=== PATIENT | female | born 1935 | race American Indian/Alaskan Native ===

== ENCOUNTER 2019-10-20 12:29 | Emergency (ER) | payer MEDICARE ==
[2019-10-20 13:33] LABS: Eosinophils # (Auto) 0.1 K/mm3 (0.0-0.4); Eosinophils % (Auto) 1.3 % (0.0-4.3); Hematocrit 44.6 % (30.3-42.9); Hemoglobin 14.7 gm/dl (10.1-14.3); Lymphocytes # (Auto) 1.1 K/mm3 (1.2-5.4); Lymphocytes % (Auto) 26.1 % (13.4-35.0); Mean Corpuscular HGB Conc 33 % (30-34); Mean Corpuscular Volume 88 fl (79-97); Monocytes # (Auto) 0.3 K/mm3 (0.0-0.8); Platelet Count 157 K/mm3 (140-440); Red Cell Distribution Width 14.4 % (13.2-15.2)
[2019-10-20 14:05] LABS: Alanine Aminotransferase 14 units/L (7-56); BUN/Creatinine Ratio 19; Blood Urea Nitrogen 13 mg/dL (7-17); Hemolysis Index 3
--- NOTE | 2019-10-20 14:43 | XRay Report ---
CHEST 1 VIEW INDICATION: dementia not taking meds. COMPARISON: None. FINDINGS: Support devices: None. Heart: Normal. Lungs/Pleura: No acute pulmonary or pleural findings. There is mild elevation of the right hemidiaphragm. IMPRESSION: 1. No acute findings. Signer Name: Héctor Rojas MD Signed: 10/20/2019 2:38 PM Workstation Name: [id number]
--- NOTE | 2019-10-20 16:06 | Emergency Department Report ---
<KIMBERLY BAPTISTECASSIUS Lambert - Last Filed: 10/20/19 20:43> ED General Adult HPI - General Chief complaint: Medical Clearance Stated complaint: AMS Time Seen by Provider: 10/20/19 13:12 - Related Data Home Medications Medication Instructions Recorded Confirmed Last Taken FLUoxetine 10 mg PO UNK 10/21/19 10/21/19 Unknown Losartan 50 mg PO QDAY 10/21/19 10/21/19 Unknown Memantine 10 mg PO QDAY 10/21/19 10/21/19 Unknown Oxybutynin Chloride 15 mg PO QDAY 10/21/19 10/21/19 Unknown raNITIdine HCl [Zantac] 150 mg PO BID 10/21/19 10/21/19 Unknown Allergies Allergy/AdvReac Type Severity Reaction Status Date / Time No Known Allergies Allergy Verified 10/20/19 16:29 ED Past Medical Hx - Medications Home Medications: Home Medications Medication Instructions Recorded Confirmed Last Taken Type FLUoxetine 10 mg PO UNK 10/21/19 10/21/19 Unknown History Losartan 50 mg PO QDAY 10/21/19 10/21/19 Unknown History Memantine 10 mg PO QDAY 10/21/19 10/21/19 Unknown History Oxybutynin Chloride 15 mg PO QDAY 10/21/19 10/21/19 Unknown History raNITIdine HCl [Zantac] 150 mg PO BID 10/21/19 10/21/19 Unknown History ED Course - Reevaluation(s) Reevaluation #1: She has been accepted to the geropsychiatric floor. Patient will be discharged from the ER and transferred directly to the geropsychiatric floor here. Patient given discharge instructions. Patient agrees with plan of care. Patient medically cleared to go to the geropsychiatric floor. 10/20/19 20:44 ED Medical Decision Making - Lab Data Result diagrams: 10/20/19 13:21 10/20/19 13:21 ED Disposition Clinical Impression: Dementia, Aggressive behavior, Homicidal ideation Disposition: [id number]/TX-65 PSY HOSP/PSY UNIT Is pt being admited?: No Does the pt Need Aspirin: No Condition: Stable Additional Instructions: Patient to be discharged from the ER and go directly to the geropsychiatric floor here. Patient to follow up with primary care in 2-3 days. Patient to return to ER if condition worsens. Referrals: PRIMARY CARE, [Primary Care Provider] - 2-3 Days Time of Disposition: 20:44 <JAYA CAMPBELL - Last Filed: 10/24/19 03:00> ED General Adult HPI - General Source: EMS Mode of arrival: Stretcher Limitations: No Limitations - History of Present Illness Initial comments: cc: "I am only here because my daughter wants me here. I need something to eat. I want to go home." Mrs. Cruz is an 84 yo female with hx of dementia HTN and depression who presents with aggressive behavior. She has been hiding knives. She has been living the home. She lives with her daughter Tanesha and 14 yo grandson. Daughter states that she is not able to take care of herself anymore. She is not bathing. She is not taking her medications. She is not able to stay by herself 10-12 hours alone. She has been in the home of her daughter for the past 2 years. Daughter states that Ms. Cruz has made threatening statements. "I'm going to kill you." Daughter is afraid to be in the knife with her with threats and hiding knives. Patient appears paranoid that everyone is stealing from her including the home health aids and her children. Aggressive language with foul language even delusional, calling her daughter a "murderer" [facility] has been involved extensively since February 2018. [facility] has also been involved. Dr. Laura Ortiz, PCP on [facility] Medications: Fluoxetine 10 mg Losartan 50 mg Memantine 10 mg Oxybutynin 15 mg Ranitidine 150 mg -: Gradual, month(s) (several months) Severity scale (0 -10): 0 Consistency: constant Improves with: none Worsens with: none Associated Symptoms: denies other symptoms Treatments Prior to Arrival: none ED Review of Systems ROS: Stated complaint: AMS Other details as noted in HPI Comment: All other systems reviewed and negative Constitutional: denies: fever, malaise Respiratory: denies: cough Cardiovascular: denies: chest pain ED Past Medical Hx - Past Medical History Previous Medical History?: Yes Hx Hypertension: Yes Hx Dementia: Yes - Surgical History Past Surgical History?: Yes Additional Surgical History: hysterectomy - Social History Smoking Status: Never Smoker Substance Use Type: None ED Physical Exam - General Limitations: No Limitations General appearance: alert, in no apparent distress - Head Head exam: Present: atraumatic, normocephalic - Eye Eye exam: Present: normal appearance - ENT ENT exam: Present: mucous membranes moist - Neck Neck exam: Present: normal inspection, full ROM - Respiratory Respiratory exam: Present: normal lung sounds bilaterally. Absent: respiratory distress, wheezes, rales, rhonchi - Cardiovascular Cardiovascular Exam: Present: regular rate, normal rhythm, normal heart sounds. Absent: systolic murmur, diastolic murmur, rubs, gallop - GI/Abdominal GI/Abdominal exam: Present: soft, normal bowel sounds. Absent: distended, tenderness, guarding, rebound - Extremities Exam Extremities exam: Present: normal inspection - Neurological Exam Neurological exam: Present: alert, oriented X3 - Psychiatric Psychiatric exam: Present: normal mood, agitated. Absent: homicidal ideation, suicidal ideation - Skin Skin exam: Present: warm, dry, intact, normal color. Absent: rash ED Course Vital Signs 10/20/19 10/20/19 10/20/19 12:53 13:16 14:00 Temperature 98.7 F Pulse Rate 76 79 83 Respiratory 20 18 18 Rate Blood Pressure 149/98 142/73 133/57 [Right] O2 Sat by Pulse 100 97 98 Oximetry 10/20/19 15:00 Temperature Pulse Rate 83 Respiratory 18 Rate Blood Pressure 137/69 [Right] O2 Sat by Pulse 98 Oximetry ED Medical Decision Making - Lab Data Result diagrams: 10/20/19 13:21 10/20/19 13:21 Laboratory Results - last 24 hr 10/20/19 10/20/19 13:21 13:21 WBC 4.2 L RBC 5.10 H Hgb 14.7 H Hct 44.6 H MCV 88 MCH 29 MCHC 33 RDW 14.4 Plt Count 157 Lymph % (Auto) 26.1 [place] % (Auto) 8.0 H Eos % (Auto) 1.3 Baso % (Auto) 1.0 Lymph # 1.1 L [place] # 0.3 Eos # 0.1 Baso # 0.0 Seg Neutrophils % 63.6 Seg Neutrophils # 2.7 Sodium 140 Potassium 3.7 Chloride 101.4 Carbon Dioxide 27 Anion Gap 15 BUN 13 Creatinine 0.7 Estimated GFR > 60 BUN/Creatinine Ratio 19 Glucose 108 H Calcium 9.0 Total Bilirubin 0.50 AST 23 ALT 14 Alkaline Phosphatase 60 Total Protein 6.9 Albumin 4.0 Albumin/Globulin Ratio 1.4 - Medical Decision Making Mr. Cruz is an 84-year-old female with hx of dementia and depression who presents with aggressive behavior escalating over the last 6 months. She has p aranoia and delusions. She has made threatening statements to family members. She is hiding weapons. She is not able or willing to perform ADLs or take medications. Adult protective services and community services have been extensively involved. Guest Attendant Jigar with [place] department [employer] Services, division of aging services. Awaiting evaluation by psychiatric team and case management Mrs. Olson is medically clear for psychiatric care. Admitted to geriatric psych unit Critical care attestation.: If time is entered above; I have spent that time in minutes in the direct care of this critically ill patient, excluding procedure time. ED Disposition Is pt being admited?: No Does the pt Need Aspirin: No
[2019-10-20] MEDS ORDERED: LORazepam 2 MG/ML VIAL IM ONE (16:27)
[2019-10-20] MEDS ORDERED: LORazepam 2 MG/ML VIAL ONE (16:27)
[2019-10-20 20:15] VITALS: BP 137/69
== END 2019-10-20 22:06 ==
LOC: ED 12:29
DX: F32.9 Major depressive disorder, single episode, unspecified (principal); R46.89 Other symptoms and signs involving appearance and behavior; F03.90 Unspecified dementia, unspecified severity, without behavioral disturbance, psychotic disturbance, mood disturbance, and anxiety; I10 Essential (primary) hypertension
CPT/HCPCS: 36415; 71045; 80053; 85025; 96372; 99284; J2060; 80320; G0480